=== PATIENT | female | born 1980 | race American Indian/Alaskan Native ===

== ENCOUNTER 2019-02-14 11:51 | Emergency (ER) | payer MEDICAID ==
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
[2019-02-14] MEDS ORDERED: ZOFRAN ODT PO ONE (13:06)
[2019-02-14] MEDS ORDERED: DILAUDID IM ONE (13:06)
[2019-02-14] MEDS ORDERED: IBUPROFEN PO ONE (13:06)
[2019-02-14] MEDS ORDERED: THERMAZENE 50 GRAM TP ONE (14:09)
[2019-02-14] MEDS ORDERED: PERCOCET 5/325 PO ONE (14:13)
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
[2019-02-14 15:43] VITALS: BP 121/71
== END 2019-02-14 15:42 | disposition home or self-care (01) ==
LOC: ED 11:51
DX: T23.201A Burn of second degree of right hand, unspecified site, initial encounter (principal); Z79.899 Other long term (current) drug therapy; X12.XXXA Contact with other hot fluids, initial encounter; Y93.89 Activity, other specified; Y92.89 Other specified places as the place of occurrence of the external cause; Y99.8 Other external cause status
CPT/HCPCS: 16020; 96372; 99282; J1170; Q0162

== ENCOUNTER 2020-12-10 09:50 | Emergency (ER) | payer MEDICAID ==
[2020-12-10 09:55] VITALS: BP 160/65
== END 2020-12-10 10:00 | disposition left against medical advice (07) ==
LOC: ED 09:50
DX: R10.9 Unspecified abdominal pain (principal); Z53.21 Procedure and treatment not carried out due to patient leaving prior to being seen by health care provider

== ENCOUNTER 2021-12-15 11:15 | Emergency (ER) | payer MEDICAID ==
[2021-12-15 11:31] VITALS: BP 132/84
[2021-12-15] MEDS ORDERED: oxyCODONE /ACETAMINOPHEN 5-325MG TAB PO ONE (12:27)
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
--- NOTE | 2021-12-15 18:06 | XRay Report ---
RIGHT WRIST 3 VIEW(S) INDICATION / CLINICAL INFORMATION: fall, pain COMPARISON: None available. FINDINGS: BONES / JOINT(S): No acute fracture or subluxation. No significant arthritis. SOFT TISSUES: No significant abnormality. ADDITIONAL FINDINGS: None. IMPRESSION: 1. No acute findings. Signer Name: Malik Hurtado MD Signed: 12/15/2021 5:58 PM Workstation Name: [email or web address]
== END 2021-12-15 13:00 | disposition left against medical advice (07) ==
LOC: ED 11:15
DX: M25.531 Pain in right wrist (principal)
CPT/HCPCS: 99283; 99284